=== PATIENT | male | born 1975 | race Caucasian/White ===

== ENCOUNTER 2019-06-06 13:04 | Emergency (ER) | payer SELFPAY ==
[~2019-06-06] VITALS: Ht 167.6 cm; Wt 85.7 kg
[2019-06-06 13:24] VITALS: Ht 167.6 cm; Wt 85.7 kg
[2019-06-06 14:18] LABS: BASOPHIL % 0.1 % (0-2); PLATELET COUNT 263 x10^3mcL (130-400); RED CELL DISTRIBUTION WIDTH 13.4 % (11.5-14.5)
[2019-06-06 14:32] LABS: CALCIUM 8.2 mg/dL (8.5-10.1); CARBON DIOXIDE 30.5 mmol/L (21-32); CHLORIDE SERUM 102 mmol/L (98-107); CREATININE SERUM 0.9 mg/dL (0.7-1.3); GFR1 > 60 mL/min; GLUCOSE SERUM 98 mg/dL (74-106); POTASSIUM SERUM 3.4 mmol/L (3.5-5.1); SODIUM SERUM 139 mmol/L (136-145)
[2019-06-06 14:36] LABS: ALKALINE PHOSPHATASE 85 U/L (46-116); ALT/SGPT 25 U/L (16-63); AST/SGOT 15 U/L (15-37); BILIRUBIN TOTAL 0.35 mg/dL (0.20-1.00); LIPASE 72 IU/L (73-393); TOTAL PROTEIN, SERUM 7.3 g/dL (6.4-8.2)
[2019-06-06 14:40] LABS: ALBUMIN 3.3 g/dL (3.4-5.0)
[2019-06-06 17:00] LABS: ALBUMIN 3.4 g/dL (3.4-5.0); BILIRUBIN DIRECT 0.1 mg/dL (0.0-0.2); BILIRUBIN TOTAL 0.29 mg/dL (0.20-1.00); TOTAL PROTEIN, SERUM 7.4 g/dL (6.4-8.2)
[2019-06-06 20:07] LABS: microscopic required? YES; urine erythrocyte 1+ (NEGATIVE)
[2019-06-06 20:16] LABS: AMPHETAMINE QUAL UR POSITIVE (See below)
[2019-06-06 21:20] VITALS: BP 129/89
== END 2019-06-06 21:20 | disposition home or self-care (01) ==
LOC: ED 13:04
PROVIDERS: Student in an Organized Health Care Education/Training Program
DX: K59.00 Constipation, unspecified (principal); F15.10 Other stimulant abuse, uncomplicated; F12.10 Cannabis abuse, uncomplicated; R11.2 Nausea with vomiting, unspecified; R50.9 Fever, unspecified; R63.0 Anorexia; Z90.49 Acquired absence of other specified parts of digestive tract
CPT/HCPCS: J1885; J2270; J2405; J3010; J7030; Q9967

== ENCOUNTER 2019-06-07 14:12 | Emergency (ER) | payer SELFPAY ==
[~2019-06-07] VITALS: Ht 167.6 cm; Wt 81.6 kg
[2019-06-07 14:26] VITALS: Ht 167.6 cm; Wt 81.6 kg
[2019-06-07 15:50] LABS: CALCIUM 8.4 mg/dL (8.5-10.1); CARBON DIOXIDE 28.8 mmol/L (21-32); CHLORIDE SERUM 101 mmol/L (98-107); CREATININE SERUM 0.8 mg/dL (0.7-1.3); GFR1 > 60 mL/min; GLUCOSE SERUM 109 mg/dL (74-106); POTASSIUM SERUM 4.6 mmol/L (3.5-5.1); SODIUM SERUM 135 mmol/L (136-145)
[2019-06-07 15:52] LABS: PLATELET COUNT 259 x10^3mcL (130-400); RED CELL DISTRIBUTION WIDTH 13.2 % (11.5-14.5)
[2019-06-07 15:54] LABS: ALBUMIN 3.4 g/dL (3.4-5.0); ALKALINE PHOSPHATASE 84 U/L (46-116); ALT/SGPT 23 U/L (16-63); AST/SGOT 18 U/L (15-37); BILIRUBIN TOTAL 0.31 mg/dL (0.20-1.00); LIPASE 77 IU/L (73-393); TOTAL PROTEIN, SERUM 7.9 g/dL (6.4-8.2)
[2019-06-07 15:56] LABS: BASOPHIL % 0 % (0-2)
[2019-06-07 18:34] VITALS: BP 136/86
== END 2019-06-07 18:34 | disposition home or self-care (01) ==
LOC: ED 14:12
PROVIDERS: Emergency Medicine
DX: K59.00 Constipation, unspecified (principal); K42.9 Umbilical hernia without obstruction or gangrene
CPT/HCPCS: J1885; J2060; J2405; J7030